=== PATIENT | female | born 1960 | race Caucasian/White ===

== ENCOUNTER 2020-02-03 09:44 | Emergency (ER) | payer OTHER | END 2020-02-03 10:36 | disposition home or self-care (01) | LOC: JVIRT 09:44 | DX: Z11.59 Encounter for screening for other viral diseases (principal) | CPT/HCPCS: C9803; Q3014-GT; U0003 ==

== ENCOUNTER 2020-02-19 13:38 | Emergency (ER) | payer OTHER | END 2020-02-19 14:14 | disposition home or self-care (01) | LOC: JVIRT 13:38 | DX: Z03.818 Encounter for observation for suspected exposure to other biological agents ruled out (principal) | CPT/HCPCS: C9803; G2012-GT; U0003 ==